=== PATIENT | female | born 1950 | race Hispanic/Latino ===

== ENCOUNTER 2017-09-19 12:53 | Outpatient (CLI) | payer MEDICARE ==
--- NOTE | 2017-09-19 15:21 | XRay Report ---
CHEST 2 VIEWS INDICATION: Cough. COMPARISON: None similar. FINDINGS: PA and lateral chest radiographs demonstrate top normal heart size. Normal mediastinal and hilar contours. Slight patient rotation to the left. Clear lungs. Demineralized bones. Mild thoracolumbar dextroscoliosis apex about T10. Nipple marker like density incidentally noted on the left in this patient with possible right mastectomy. Please correlate. Right hemidiaphragm slightly elevated/eventrated anteriorly. CONCLUSION: No acute chest process with few incidental findings, as above. Thank you for the opportunity to participate in this patient's care.
--- NOTE | 2017-09-19 16:13 | Mammography Report ---
LEFT DIGITAL SCREENING MAMMOGRAM with CAD: 09/19/17 12:53:00 CLINICAL: Routine screening. Breast cancer survivor status post right mastectomy. COMPARISON:05/24/16 FINDINGS: No mass, suspicious architectural distortion or suspicious calcifications. IMPRESSION: No mammographic evidence of malignancy. BI-RADS CATEGORY: 1 - - Negative RECOMMENDATION: Routine screening in one year. ACR BI-RADS MAMMOGRAPHIC CODES: 0 = Needs additional imaging evaluation; 1 = Negative; 2 = Benign; 3 = Probably benign; 4 = Suspicious; 5 = Malignant; 6 = Known biopsy-proven malignancy COMMENT: 1. Dense breast tissue, i.e., adenosis, fibrocystic changes, etc., may obscure an underlying neoplasm. 2. Approximately 10% of cancers are not detected with mammography. 3. A negative mammography report should not delay biopsy if a clinically suspicious mass is present. COMMENT: Patient follow-up letters are generated via our [employer] application.
== END 2017-09-19 12:54 | disposition home or self-care (01) ==
LOC: SPVWC 12:53
DX: Z12.31 Encounter for screening mammogram for malignant neoplasm of breast (principal); J98.6 Disorders of diaphragm; R05 Cough; M41.85 Other forms of scoliosis, thoracolumbar region; Z90.11 Acquired absence of right breast and nipple
CPT/HCPCS: 71020; G0202